=== PATIENT | female | born 1945 | race Caucasian/White ===

== ENCOUNTER 2021-04-28 15:29 | Inpatient (IN) | payer MEDICARE, OTHER, BC, SELFPAY ==
[2021-04-28] VITALS (28 sets, daily range): BP systolic 116–167; BP diastolic 39–79; PULSE 70–106; RESP 18–38; TEMP 36.4–37; O2SAT 93–100; BMI 29.0
--- NOTE | 2021-04-28 15:39 | ED_ITS ---
HPI - SOB/Dyspnea General: Chief Complaint: Shortness of Breath/Dyspnea Stated Complaint: RESP DISTRESS Time Seen by Provider: 04/28/21 15:39 Source: EMS Limitations: altered mental status History of Present Illness: HPI Narrative: Ms Dodge is 75 with unclear history who presents due to reported resp distress. Patient does not provide meaningful history with unclear baseline. No additional information available. Review of Systems General: Reports: ROS unobtainable due to mental status PFS ED PFSH: Medical History (Updated 04/29/21 @ 12:57 by Philip Miller MD) Alzheimer's dementia Physical Exam Narrative: EXAM NARRATIVE: GENERAL/CONSTITUTIONAL - ill-appearing. resp di stress Eyes - PERRL, no conjunctival injection ENMT - Atraumatic external nose and ears. Moist mucous membranes NECK - supple. trachea midline CARDIOVASCULAR - regular rate and rhythm. Peripheral pulses 2+ and equal RESPIRATORY -course/deminished at the bases to auscultation bilaterally. accessory muscle use present ABDOMEN/GI - Nontender/Nondistended. No tenderness to percussion or evidence of peritonitis MSK - Extremities without obvious deformity or tenderness to palpation SKIN - Warm, Dry NEURO - alert but disoriented. Moves all extremities equally. Course ED course: - Patient was seen and evaluated by me at bedside - Patient placed on cardiac monitors, IV access obtained - Initial evaluation notable for increased work of breathing. AMS - Labs notable for as noted - resp effort continued to be labored. Bipap ordered with improved - Imaging notable for PE and effusions - Upon serial reexamination after treatment the patient was improved - Based on patient history, evaluation, labs, and imaging as interpreted the most likely cause of the patient's condition is unclear, new heart failure, PE - The results of ED evaluation were discussed with the patient including plan for admission due to requirement for level of care not available if discharged to prevent significant worsening/deterioration. - Hospitalist contacted and agreed to admit the patient - Patient was admitted without further deterioration or significant events. Vital Signs: Vital signs: Vital Signs Temperature 97.7 F 04/30/21 04:00 Pulse Rate 89 04/30/21 08:38 Respiratory Rate 18 04/30/21 08:38 Blood Pressure 135/58 04/30/21 04:00 Pulse Oximetry 93 04/30/21 08:38 MDM - SOB/Dyspnea Medical Records: Attestation: I reviewed the patient's medical records. Lab Data: Attestation: I reviewed the patient's lab results. Labs: Lab Results 04/28/21 04/28/21 04/28/21 15:16 15:16 15:16 WBC 11.2 10^3/uL H 10 ^3/uL (4.0-10.0) RBC 4.90 10^6/uL 10^6 /uL (4.1-5.3) Hgb 13.5 g/dL g/dL (11.5-15.3) Hct 43.6 % % (37.0-47.0) MCV 89.0 fl fl (81-99) MCH 27.6 pg L pg (28.0-34.0) MCHC 31.0 g/dL g/dL (30.0-36.0) RDW 15.4 % H % (12.1-15.1) Plt Count 367 10^3/cmm 10^3 /cmm (130-400) MPV 10.6 fL H fL (7.4-10.4) Neut % (Auto) 78.5 % % Lymph % (Auto) 8.8 % % [place] % (Auto) 11.3 % % Eos % (Auto) 0.4 % % Baso % (Auto) 0.6 % % Neut # (Auto) 8.78 10^3/uL H 10 ^3/uL (1.8-7.7) Lymph # (Auto) 1.0 10^3/uL 10^3/ uL (0.8-4.8) [place] # (Auto) 1.3 10^3/uL H 10^ 3/uL (0.2-0.9) Eos # (Auto) 0.1 10^3/uL 10^3/ uL (0.0-0.8) Baso # (Auto) 0.1 10^3/uL 10^3/ uL (0.0-0.1) Nucleated RBC % (a uto) 0 % % Nucleated RBCs # 0.0 /100WBC /100W BC Specimen Type Sample Site ABG pH ABG pCO2 ABG pO2 ABG HCO3 ABG Base Excess Clint Test Hematocrit Hgb O2 Saturation Carboxyhemoglobin Methemoglobin Total Hemoglobin O2 Delivery Device O2 Liters/Min FiO2 Weatherization Installer ID Sodium 143 mmol/L mmol/L (136-145) Potassium 4.6 mmol/L mmol/L (3.5-5.1) Chloride 106 mmol/L mmol/L (98-107) Carbon Dioxide 24 mmol/L mmol/L (22-29) Anion Gap 17.6 (5-19) BUN 24 mg/dL H mg/dL (8-23) Creatinine 0.8 mg/dL mg/dL (0.5-0.9) GFR Calculation Not Reportable Glucose 142 mg/dL H mg/dL (65-115) POC Glucose Calculated Osmolal ity 302 mOsm/kg H mOs m/kg (285-295) Lactic Acid Lactic Acid (Sepsi s) Lactate Calcium 8.9 mg/dL mg/dL (8.5-10.5) Total Bilirubin 1.3 mg/dL H mg/dL (0.15-1.2) AST 48 U/L H U/L (0-32) ALT 93 U/L H U/L (0-33) Alkaline Phosphata se 216 IU/L H IU/L (35-105) Ammonia Troponin T Baselin e 32 ng/L H ng/L (0-10) Troponin T 120 Min [place] Delta Troponin T Troponin T Hi Sens 6Hr Troponin T Hi Sens 6Hr Delta C-Reactive Protein 41.9 mg/L H mg/L (0.0-4.9) NT-Pro-B Natriuret Pep 83062 pg/mL H pg/ mL (0-450) Total Protein 6.0 g/dL L g/dL (6.6-8.7) Albumin 3.5 g/dL g/dL (3.5-5.2) Globulin 2.5 g/dL g/dL (1.3-4.6) Lipase Procalcitonin 0.09 ng/mL ng/mL (0-0.5) Urine Color Urine Appearance Urine pH Ur Specific Gravit y Urine Protein Urine Glucose (UA) Urine Ketones Urine Blood Urine Nitrate Urine Bilirubin Urine Urobilinogen Ur Leukocyte Ale ase Urine RBC Urine WBC Ur Squamous Epith Cells Amorphous Sediment Urine Bacteria Urine Mucus Nasal/Oral COVID-1 9 PCR SARS-CoV-2 Ag (Rap id) 04/28/21 04/28/21 04/28/21 15:58 16:08 16:11 WBC RBC Hgb Hct MCV MCH MCHC RDW Plt Count MPV Neut % (Auto) Lymph % (Auto) [place] % (Auto) Eos % (Auto) Baso % (Auto) Neut # (Auto) Lymph # (Auto) [place] # (Auto) Eos # (Auto) Baso # (Auto) Nucleated RBC % (a uto) Nucleated RBCs # Specimen Type Arterial Sample Site Radial, left ABG pH 7.41 (7.35-7.45) ABG pCO2 31.1 mmHg L mmHg (35-45) ABG pO2 93.5 mmHg mmHg (80.0-100.0) ABG HCO3 19.8 mmol/L L mmo l/L (22-26) ABG Base Excess -3.8 mmol/L L mmo l/L (-2.0-2.0) Clint Test Pos Hematocrit 40.7 % % (37-47) Hgb O2 Saturation 96.1 % % (95-100) Carboxyhemoglobin 1.8 %THgb %THgb (0.4-20.1) Methemoglobin 0.2 % L % (0.4-1.5) Total Hemoglobin 13.3 g/dL g/dL (12-16) O2 Delivery Device Nc O2 Liters/Min 2.0 % % FiO2 28.0 % % Weatherization Installer ID Ed Sodium Potassium Chloride Carbon Dioxide Anion Gap BUN Creatinine GFR Calculation Glucose POC Glucose 154 mg/dL H mg/dL (70-110) Calculated Osmolal ity Lactic Acid Lactic Acid (Sepsi s) Lactate Calcium Total Bilirubin AST ALT Alkaline Phosphata se Ammonia Troponin T Baselin e Troponin T 120 Min [place] Delta Troponin T Troponin T Hi Sens 6Hr Troponin T Hi Sens 6Hr Delta C-Reactive Protein NT-Pro-B Natriuret Pep Total Protein Albumin Globulin Lipase Procalcitonin Urine Color Urine Appearance Urine pH Ur Specific Gravit y Urine Protein Urine Glucose (UA) Urine Ketones Urine Blood Urine Nitrate Urine Bilirubin Urine Urobilinogen Ur Leukocyte Ale ase Urine RBC Urine WBC Ur Squamous Epith Cells Amorphous Sediment Urine Bacteria Urine Mucus Nasal/Oral COVID-1 9 PCR Not detected SARS-CoV-2 Ag (Rap id) 04/28/21 04/28/21 04/28/21 16:18 17:00 17:00 WBC RBC Hgb Hct MCV MCH MCHC RDW Plt Count MPV Neut % (Auto) Lymph % (Auto) [place] % (Auto) Eos % (Auto) Baso % (Auto) Neut # (Auto) Lymph # (Auto) [place] # (Auto) Eos # (Auto) Baso # (Auto) Nucleated RBC % (a uto) Nucleated RBCs # Specimen Type Sample Site ABG pH ABG pCO2 ABG pO2 ABG HCO3 ABG Base Excess Lcint Test Hematocrit Hgb O2 Saturation Carboxyhemoglobin Methemoglobin Total Hemoglobin O2 Delivery Device O2 Liters/Min FiO2 Weatherization Installer ID Sodium Potassium Chloride Carbon Dioxide Anion Gap BUN Creatinine GFR Calculation Glucose POC Glucose Calculated Osmolal ity Lactic Acid 3.1 mmol/L H mmol /L (0.5-2.2) Lactic Acid (Sepsi s) Lactate Calcium Total Bilirubin AST ALT Alkaline Phosphata se Ammonia Troponin T Baselin e Troponin T 120 Min [place] 29.84 ng/L H ng/L (0-10) Delta Troponin T -2.16 ABS# L ABS# (0-10) Troponin T Hi Sens 6Hr Troponin T Hi Sens 6Hr Delta C-Reactive Protein NT-Pro-B Natriuret Pep Total Protein Albumin Globulin Lipase Procalcitonin Urine Color Urine Appearance Urine pH Ur Specific Gravit y Urine Protein Urine Glucose (UA) Urine Ketones Urine Blood Urine Nitrate Urine Bilirubin Urine Urobilinogen Ur Leukocyte Ale ase Urine RBC Urine WBC Ur Squamous Epith Cells Amorphous Sediment Urine Bacteria Urine Mucus Nasal/Oral COVID-1 9 PCR SARS-CoV-2 Ag (Rap id) Negative (Negative) 04/28/21 04/28/21 04/28/21 18:55 18:55 18:55 WBC RBC Hgb Hct MCV MCH MCHC RDW Plt Count MPV Neut % (Auto) Lymph % (Auto) [place] % (Auto) Eos % (Auto) Baso % (Auto) Neut # (Auto) Lymph # (Auto) [place] # (Auto) Eos # (Auto) Baso # (Auto) Nucleated RBC % (a uto) Nucleated RBCs # Specimen Type Sample Site ABG pH ABG pCO2 ABG pO2 ABG HCO3 ABG Base Excess Clint Test Hematocrit Hgb O2 Saturation Carboxyhemoglobin Methemoglobin Total Hemoglobin O2 Delivery Device O2 Liters/Min FiO2 Weatherization Installer ID Sodium Potassium Chloride Carbon Dioxide Anion Gap BUN Creatinine GFR Calculation Glucose POC Glucose Calculated Osmolal ity Lactic Acid Lactic Acid (Sepsi s) 2.7 mmol/L H mmol /L (0.5-2.2) Lactate Calcium Total Bilirubin AST ALT Alkaline Phosphata se Ammonia 14 umol/L umol/L (11-51) Troponin T Baselin e Troponin T 120 Min [place] Delta Troponin T Troponin T Hi Sens 6Hr Troponin T Hi Sens 6Hr Delta C-Reactive Protein NT-Pro-B Natriuret Pep Total Protein Albumin Globulin Lipase Procalcitonin Urine Color Yellow (Yellow) Urine Appearance Sl cloudy A (CLEAR) Urine pH 5 (5-7) Ur Specific Gravit y 1.025 (1.005-1.030) Urine Protein 3+ H (Negative) Urine Glucose (UA) Norm (Normal) Urine Ketones Negative (Negative) Urine Blood 3+ H (Negative) Urine Nitrate Negative (Negative) Urine Bilirubin 1+ H (Negative) Urine Urobilinogen 1 mg/dL H mg/dL (Negative) Ur Leukocyte Ale ase 1+ H (Negative) Urine RBC 0-4 /hpf H /hpf (0-2) Urine WBC 10-15 /hpf H /hpf (0-5) Ur Squamous Epith Cells 5-10 /hpf H /hpf (0-5) Amorphous Sediment 2+ /hpf /hpf Urine Bacteria 2+ /hpf H /hpf (NONE) Urine Mucus Trace /hpf /hpf Nasal/Oral COVID-1 9 PCR SARS-CoV-2 Ag (Rap id) 04/28/21 04/28/21 04/28/21 21:00 21:00 21:00 WBC RBC Hgb Hct MCV MCH MCHC RDW Plt Count MPV Neut % (Auto) Lymph % (Auto) [place] % (Auto) Eos % (Auto) Baso % (Auto) Neut # (Auto) Lymph # (Auto) [place] # (Auto) Eos # (Auto) Baso # (Auto) Nucleated RBC % (a uto) Nucleated RBCs # Specimen Type Sample Site ABG pH ABG pCO2 ABG pO2 ABG HCO3 ABG Base Excess Clint Test Hematocrit Hgb O2 Saturation Carboxyhemoglobin Methemoglobin Total Hemoglobin O2 Delivery Device O2 Liters/Min FiO2 Weatherization Installer ID Sodium Potassium Chloride Carbon Dioxide Anion Gap BUN Creatinine GFR Calculation Glucose POC Glucose Calculated Osmolal ity Lactic Acid Lactic Acid (Sepsi s) Lactate 2.1 mmol/L mmol/L (0.5-2.2) Calcium Total Bilirubin AST ALT Alkaline Phosphata se Ammonia Troponin T Baselin e Troponin T 120 Min [place] Troponin T Troponin T Hi Sens 6Hr 24.97 ng/L H ng/L (0-10) Troponin T Hi Sens 6Hr Delta -7.03 ng/L L ng/L (0-12) C-Reactive Protein NT-Pro-B Natriuret Pep Total Protein Albumin Globulin Lipase 32 U/L U/L (13-60) Procalcitonin Urine Color Urine Appearance Urine pH Ur Specific Gravit y Urine Protein Urine Glucose (UA) Urine Ketones Urine Blood Urine Nitrate Urine Bilirubin Urine Urobilinogen Ur Leukocyte Ale ase Urine RBC Urine WBC Ur Squamous Epith Cells Amorphous Sediment Urine Bacteria Urine Mucus Nasal/Oral COVID-1 9 PCR SARS-CoV-2 Ag (Rap id) 04/28/21 21:00 WBC RBC Hgb Hct MCV MCH MCHC RDW Plt Count MPV Neut % (Auto) Lymph % (Auto) [place] % (Auto) Eos % (Auto) Baso % (Auto) Neut # (Auto) Lymph # (Auto) [place] # (Auto) Eos # (Auto) Baso # (Auto) Nucleated RBC % (a uto) Nucleated RBCs # Specimen Type Sample Site ABG pH ABG pCO2 ABG pO2 ABG HCO3 ABG Base Excess Clint Test Hematocrit Hgb O2 Saturation Carboxyhemoglobin Methemoglobin Total Hemoglobin O2 Delivery Device O2 Liters/Min FiO2 Weatherization Installer ID Sodium Potassium Chloride Carbon Dioxide Anion Gap BUN Creatinine GFR Calculation Glucose POC Glucose 150 mg/dL H mg/dL (70-110) Calculated Osmolal ity Lactic Acid Lactic Acid (Sepsi s) Lactate Calcium Total Bilirubin AST ALT Alkaline Phosphata se Ammonia Troponin T Baselin e Troponin T 120 Min [place] Delta Troponin T Troponin T Hi Sens 6Hr Troponin T Hi Sens 6Hr [place] C-Reactive Protein NT-Pro-B Natriuret Pep Total Protein Albumin Globulin Lipase Procalcitonin Urine Color Urine Appearance Urine pH Ur Specific Gravit y Urine Protein Urine Glucose (UA) Urine Ketones Urine Blood Urine Nitrate Urine Bilirubin Urine Urobilinogen Ur Leukocyte Ale ase Urine RBC Urine WBC Ur Squamous Epith Cells Amorphous Sediment Urine Bacteria Urine Mucus Nasal/Oral COVID-1 9 PCR SARS-CoV-2 Ag (Rap id) EKG Data^: EKG 1: Attestation: I personally reviewed and interpreted this EKG as follows: EKG Interpretation Date: 04/28/21 EKG interpretation time: 15:51 Interpretation: Twelve-lead EKG shows a regular rhythm at a rate of 98. GA interval 124. QRS duration 82. QTc 399. normal [place]. . Interpretation: sinus Rhythm. . 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
--- NOTE | 2021-04-28 15:50 | CTR_ITS ---
PROCEDURE INFORMATION: Exam: CT Head Without Contrast Exam date and time: 04/28/2021 3:50 PM Age: 75 years old Clinical indication: Altered mental status/memory loss; Additional info: AMS TECHNIQUE: Imaging protocol: Computed tomography of the head without contrast. Radiation optimization: All CT scans at this facility use at least one of these dose optimization techniques: automated exposure control; mA and/or kV adjustment per patient size (includes targeted exams where dose is matched to clinical indication); or iterative reconstruction. COMPARISON: No relevant prior studies available. 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 Mild atrophy and mild white matter chronic microvascular changes are noted. No hemorrhage or evidence of acute infarction is seen. Cerebral ventricles: No ventriculomegaly. Paranasal sinuses: Visualized sinuses are unremarkable. No fluid levels. Mastoid air cells: Visualized mastoid air cells are well aerated. Bones/joints: Unremarkable. No acute fracture. Soft tissues: Unremarkable. CT/CT head wo con* [id number] IMPRESSION: No acute intracranial abnormality. Radiation Dose CTDIVOL = (mGy): DLP = 3836.04 (mGy-cm)
--- NOTE | 2021-04-28 15:50 | ECG_ITS ---
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 Measurements Intervals [place] Rate: 98 P: 51 NE: 124 QRS: 30 QRSD: 82 T: 88 QT: 344 QTc: 440 Interpretive Statements SINUS RHYTHM NONSPECIFIC T-WAVE ABNORMALITY No previous ECG available for comparison Electronically Signed On 04-29-2021 23:25:24 CDT by Jasmin Olson M.D. [email or web address] Board [email or web address] Addiction Medicine ([email or web address]).[email or web address] [email or web address] [email or web address] [email or web address].[email or web address]/store/Ov/[id number]
--- NOTE | 2021-04-28 15:50 | XRR_ITS ---
PROCEDURE INFORMATION: Exam: XR Chest Exam date and time: 04/28/2021 3:50 PM Age: 75 years old Clinical indication: Dyspnea and shortness of breath; Patient HX: Respiratory distress, SOB TECHNIQUE: Imaging protocol: XR of the chest. Views: 1 view. COMPARISON: none available. FINDINGS: Lungs: Bibasilar opacities are appreciated, which may be atelectasis and or pneumonia. Pleural spaces: A moderate size right pleural effusion is present. No pneumothorax is seen. Heart: The heart is mildly enlarged. Bones/joints: No acute fracture is seen. XR/XR chest 1V portable [id number] IMPRESSION: 1. Bibasilar atelectasis versus pneumonia, and moderate sized right pleural effusion. 2. Mild cardiomegaly.
[2021-04-28 16:01] LABS: Glucose Point of Care 154 mg/dL (70-110)
[2021-04-28 16:06] LABS: Basophils # 0.1 10^3/uL (0.0-0.1); Basophils % 0.6 %; Eosinophils # 0.1 10^3/uL (0.0-0.8); Eosinophils % 0.4 %; Hematocrit 43.6 % (37.0-47.0); Hemoglobin 13.5 g/dL (11.5-15.3); Lymphocytes % 8.8 %; Mean Corpuscular Hemoglobin 27.6 pg (28.0-34.0); Mean Platelet Volume 10.6 fL (7.4-10.4); Monocytes # 1.3 10^3/uL (0.2-0.9); Monocytes % 11.3 %; Neutrophils # 8.78 10^3/uL (1.8-7.7); Neutrophils % 78.5 %; Nucleated Red Blood Cells % 0 %; Platelet Count 367 10^3/cmm (130-400); Red Cell Distribution Width 15.4 % (12.1-15.1); White Blood Count 11.2 10^3/uL (4.0-10.0)
[2021-04-28 16:17] LABS: ABG PCO2 31.1 mmHg (35-45); ABG PH Result 7.41 (7.35-7.45); Arterial Blood Gas Hematocrit 40.7 % (37-47); Base Excess ABG -3.8 mmol/L (-2.0-2.0); Blood Gas Allen Test Pos; Blood Gas Sample Type Arterial; Carboxyhemoglobin 1.8 %THgb (0.4-20.1); HCO3 ABG 19.8 mmol/L (22-26); HGB O2 Sat 96.1 % (95-100); Methemoglobin 0.2 % (0.4-1.5); PO2 ABG 93.5 mmHg (80.0-100.0); Total Hemoglobin 13.3 g/dL (12-16)
[2021-04-28 16:18] LABS: Blood Gas Operator Identificat ED; Blood Gas Sample Site Radial, left; Oxygen Device NC
[2021-04-28] MEDS: sodium chloride 0.9% 500 ML 999 ML IV (16:18)
--- NOTE | 2021-04-28 16:25 | PC.NURSE ---
Out to lobby to speak with family due to covid testing, no visitors allowed at this time.
[2021-04-28] MEDS: ipratropium-albuterol 3 mL Neb INHALATION (16:32)
[2021-04-28 16:52] LABS: SARS Covid-2 Antigen Negative (Negative)
[2021-04-28 16:53] LABS: Procalcitonin 0.09 ng/mL (0-0.5)
[2021-04-28 16:56] LABS: Troponin(5th) Baseline 32 ng/L (0-10)
[2021-04-28 17:11] LABS: Alanine Aminotransferase 93 U/L (0-33); Albumin Level 3.5 g/dL (3.5-5.2); Alkaline Phosphatase 216 IU/L (35-105); Anion Gap 17.6 (5-19); Aspartate Amino Transferase 48 U/L (0-32); Blood Urea Nitrogen 24 mg/dL (8-23); C Reactive Protein 41.9 mg/L (0.0-4.9); Calcium 8.9 mg/dL (8.5-10.5); Carbon Dioxide 24 mmol/L (22-29); Chloride 106 mmol/L (98-107); Globulin 2.5 g/dL (1.3-4.6); Glucose 142 mg/dL (65-115); Osmolality Calculated 302 mOsm/kg (285-295); Potassium 4.6 mmol/L (3.5-5.1); Sodium 143 mmol/L (136-145); Total Bilirubin 1.3 mg/dL (0.15-1.2)
--- NOTE | 2021-04-28 17:18 | PC.NURSE ---
Updated in waiting room.
[2021-04-28 17:26] LABS: Troponin 5 2HR 29.84 ng/L (0-10); Troponin 5 2HR Delta -2.16 ABS# (0-10)
[2021-04-28 17:36] LABS: Lactic Sepsis W/Reflex 3.1 mmol/L (0.5-2.2)
--- NOTE | 2021-04-28 17:56 | CTR_ITS ---
PROCEDURE INFORMATION: Exam: CTA Chest With Contrast Exam date and time: 04/28/2021 5:56 PM Age: 75 years old Clinical indication: Fever; Cough and shortness of breath; Additional info: Hypoxemia, tachycardia, transminitis TECHNIQUE: Imaging protocol: Computed tomographic angiography of the chest with contrast. 3D rendering (Not supervised by radiologist): MIP and/or 3D reconstructed images were created by the technologist. Radiation optimization: All CT scans at this facility use at least one of these dose optimization techniques: automated exposure control; mA and/or kV adjustment per patient size (includes targeted exams where dose is matched to clinical indication); or iterative reconstruction. Contrast material: OMNI 350; Contrast volume: 95 ml; Contrast route: INTRAVENOUS (IV); COMPARISON: CR XR chest 1V portable [id number] 04/28/2021 4:05 PM RADIATION DOSE METRICS: Total DLP (mGy-cm): 1591.43 FINDINGS: Pulmonary arteries: There is occlusive segmental pulmonary embolism in the inferior left upper lobe. Right lower lobe pulmonary arteries are poorly opacified. A discrete thrombus is not visible. Aorta: There is moderate aortic atherosclerotic disease. Lungs: There is compressive atelectasis in the dependent portions of both lungs. There is multifocal consolidation in the right middle lobe and inferior left upper lobe. There is compressive atelectasis in the lower lobes. Pleural spaces: Large bilateral simple pleural effusions. Heart: There is mild cardiac enlargement. There is no pericardial effusion. RV/LV ratio is normal (1.0). Lymph nodes: There is no mediastinal or hilar lymphadenopathy. Bones/joints: Bones are unremarkable. Soft tissues: There is diffuse chest wall edema. IMPRESSION: 1. Pulmonary embolism. No sign of right ventricular strain. 2. Anasarca 3. Large bilateral simple pleural effusions. 4. Multifocal consolidation in the right middle lobe and lingula. Possible infection or infarction. PROCEDURE INFORMATION: Exam: CT Abdomen And Pelvis With Contrast Exam date and time: 04/28/2021 5:56 PM Age: 75 years old Clinical indication: Fever; Cough and shortness of breath; Additional info: Hypoxemia, tachycardia, transminitis TECHNIQUE: Imaging protocol: Computed tomography of the abdomen and pelvis with contrast. Radiation optimization: All CT scans at this facility use at least one of these dose optimization techniques: automated exposure control; mA and/or kV adjustment per patient size (includes targeted exams where dose is matched to clinical indication); or iterative reconstruction. Contrast material: OMNI 350; Contrast volume: 95 ml; Contrast route: INTRAVENOUS (IV); COMPARISON: CR XR chest 1V portable [id number] 04/28/2021 4:05 PM RADIATION DOSE METRICS: Total DLP (mGy-cm): 1591.43 FINDINGS: Liver: The liver is normal. Gallbladder and bile ducts: The gallbladder is incompletely distended. The wall is markedly diffusely thickened. There are gallstones in the lumen. There is no intrahepatic or extrahepatic bile duct dilation. Pancreas: The pancreas is unremarkable. Spleen: The spleen is unremarkable. Adrenal glands: The adrenal glands are unremarkable. Kidneys and ureters: The kidneys are unremarkable. No hydronephrosis or stones. No ureteral dilation. Stomach and bowel: The stomach is decompressed, preventing meaningful evaluation of wall thickness. The small bowel is nondilated. The colon is unremarkable. Appendix: The appendix is not visible. Intraperitoneal space: There is trace pelvic ascites. There is no free air or significant intraperitoneal free fluid. Vasculature: There is severe aortic atherosclerotic disease. Lymph nodes: There is no lymphadenopathy in the retroperitoneum, mesentery, pelvis or inguinal regions. Urinary bladder: The urinary bladder is decompressed, preventing meaningful evaluation of wall thickness. The Contreras catheter is appropriately positioned with the bulb and tip within the bladder lumen. Reproductive: The uterus is absent. There is no adnexal mass or large cyst. Bones/joints: There is mild degenerative disease in the lower lumbar spine. The pelvis and proximal femora are intact. Soft tissues: There is diffuse abdominal wall edema. The abdominal wall is intact. CT/CT angio chest w abd pel w con IMPRESSION: 1. Equivocal findings for acute cholecystitis including cholelithiasis and gallbladder wall thickening. 2. Anasarca. Radiation Dose CTDIVOL = (mGy): DLP = 1591.43~1591.43 (mGy-cm)
[2021-04-28 18:50] LABS: Reflex Lactate Order REFLEX LACTIC ORDERD
[2021-04-28] MEDS: iohexol 350 mg/mL 100 mL Btl IV (19:19)
[2021-04-28 19:23] LABS: Ammonia 14 umol/L (11-51); Lactic Acid level (Lactate) 2.7 mmol/L (0.5-2.2)
[2021-04-28] MEDS: FUROsemide 10 mg/mL SDV 4mL 40 MG IVP (19:57)
--- NOTE | 2021-04-28 20:06 | USR_ITS ---
PROCEDURE INFORMATION: Exam: US Abdomen, Limited; Right Upper Quadrant Exam date and time: 04/28/2021 8:06 PM Age: 75 years old Clinical indication: Abdominal pain; Additional info: Ruq, ? cholecystitis TECHNIQUE: Imaging protocol: US abdomen. Real time ultrasound with image documentation. Limited exam focused on the right upper quadrant. COMPARISON: CT angio chest w abd pel w con 04/28/2021 7:13 PM FINDINGS: Limitations: The suboptimal evaluation of the gallbladder due to body habitus and difficulty with positioning. Liver: The liver is unremarkable. Gallbladder: There is dependent echogenic material in the gallbladder lumen consistent with small stones or sludge. The gallbladder is nondistended. There is moderate diffuse gallbladder wall thickening. No pericholecystic fluid. Information regarding sonographic Lewis sign was not provided by the dough scaler and mixer. Common bile duct: The common bile duct is nondilated measuring 5 mm. Pancreas: The pancreas is obscured by overlying bowel gas. Right kidney: The right kidney is poorly visualized. Aorta: The visible portion of the abdominal aorta is unremarkable. Inferior vena cava: The upper IVC is unremarkable. US/US abdomen limited [id number] IMPRESSION: Nondistended gallbladder containing stones or sludge and demonstrating a thickened wall. Findings are equivocal for acute cholecystitis. Gallbladder wall edema could be related to the systemic process producing anasarca.
[2021-04-28 20:13] LABS: Glucose Urine UA Norm (Normal); Protein Urine 3+ (Negative); Specific Gravity, Urine 1.025 (1.005-1.030); Urine Color Yellow (Yellow); pH Urine 5 (5-7)
[2021-04-28 20:14] LABS: Add Urine Microscopic? YES; Bilirubin Urine 1+ (Negative); Blood Urine 3+ (Negative); Ketones Urine Negative (Negative); Leukocyte Esterase Urine 1+ (Negative); Nitrate Urine Negative (Negative); RBC Urine 0-4 /hpf (0-2); Urobilinogen Urine 1 mg/dL (Negative)
[2021-04-28 20:15] LABS: Add Urine Culture? Yes; Amorphous Sediment Urine 2+ /hpf; Bacteria Urine 2+ /hpf; Mucus Urine TRACE /hpf
[2021-04-28] MEDS: levofloxacin-dextrose 5 % 750 MG/150 ML PREMIX 100 MG IV (20:24)
[2021-04-28] MEDS: enoxaparin 80 mg/0.8 mL Syringe SUBCUT (20:24)
[2021-04-28 21:03] LABS: Glucose Point of Care 150 mg/dL (70-110)
[2021-04-28] MEDS: morphine 4 mg/mL SDV 1 mL 2 MG IVP (21:17)
[2021-04-28] MEDS: ondansetron 2 mg/ML SDV 2 mL 4 MG IVP (21:17)
--- NOTE | 2021-04-28 21:21 | PC.NURSE ---
800ml howard output
[2021-04-28 21:31] LABS: Troponin 5 6HR 24.97 ng/L (0-10)
[2021-04-28 21:32] LABS: Lactate (Lactic Acid level) 2.1 mmol/L (0.5-2.2)
[2021-04-28 21:33] LABS: Lipase 32 U/L (13-60)
[2021-04-28 21:44] LABS: Troponin 5 6HR Delta -7.03 ng/L (0-12)
--- NOTE | 2021-04-28 21:50 | ECG_ITS ---
[facility] Test Date: 2021-04-28 Pat Name: Ana Paula Dodge Department: Room: ICU03 Gender: Female Referral Rn: : 1945 Requested By: Mp Cosby Order Number: [id number] Radha MD: Jasmin Olson M.D. Measurements Intervals [place] Rate: 84 P: 47 DC: 123 QRS: 25 QRSD: 85 T: 212 QT: 399 QTc: 473 Interpretive Statements SINUS RHYTHM NONSPECIFIC T-WAVE ABNORMALITY Compared to ECG 04/28/2021 15:42:46 No significant changes Electronically Signed On 04-29-2021 23:47:07 CDT by Jasmin Olson M.D. [email or web address] medical [id number]
--- NOTE | 2021-04-28 23:30 | PC.NURSE ---
Patient arrived to ICU from ER at 2310. On Bipap and unable to answer questions at this time. Has a diagnosis of dementia.
[2021-04-29] VITALS (24 sets, daily range): BP systolic 106–147; BP diastolic 35–78; PULSE 68–88; RESP 15–19; TEMP 36.3–36.4; O2SAT 93–100
--- NOTE | 2021-04-29 05:26 | USCV_ITS ---
Ana Paula Dodge Age: 75 Gender: F : 1945 Exam Date: 04/29/2021 06:44 Ordering Phys: Shannon Bob MD Technologist: Margarita Hurst Exam Location: [facility] [place] Indication: ESTIMATED EF, EVAL RIGHT HEART STRAIN, COVID BP: 121 / 66 HR: 75 Rhythm: Sinus Technical Quality: Adequate MEASUREMENTS (Male / Female) Normal Values 2D ECHO LV Diastolic Diameter PLAX 4.8 cm 4.2 - 5.9 / 3.9 - 5.3 cm LV Systolic Diameter PLAX 4.4 cm IVS Diastolic Thickness 1.2 cm 0.6 - 1.0 / 0.6 - 0.9 cm IVS Systolic Thickness 1.5 cm LVPW Diastolic Thickness 1.1 cm 0.6 - 1.0 / 0.6 - 0.9 cm LVPW Systolic Thickness 1.4 cm LVOT Diameter 2.0 cm LV Ejection Fraction 2D Teich 19.7 % LV Ejection Fraction MOD 2C 32.7 % LV Ejection Fraction 2C AL 34.1 % LA Diameter 2.8 cm LA Width 3.3 cm LA Height 4.6 cm RA Width 4.5 cm RA Height 4.3 cm Aorta at Sinotubular Diameter 2.2 cm DOPPLER AV Peak Velocity 344.0 cm/s LVOT Peak Velocity 89.0 cm/s AV Area Cont Eq vti 0.8 cm squared AV Area Cont Eq pk 0.8 cm squared MV Peak Velocity 223.0 cm/s MV Area PHT 4.0 cm squared Mitral E to A Ratio 1.6 MV E' Velocity 75.0 cm/s Mitral E to MV E' Ratio 32.5 Mitral E to LV E' Lateral Ratio 38.5 Mitral E to LV E' Septal Ratio 28.1 TR Peak Velocity 312.1 cm/s TR Peak Gradient 39.0 mmHg TR Mean Velocity 261.5 cm/s TR Mean Gradient 29.4 mmHg TR Velocity Time Integral 112.2 cm TV Peak E Velocity 60.0 cm/s Right Atrial Pressure 15.0 mmHg Pulmonary Artery Systolic Pressu 54.0 mmHg PV Peak Velocity 93.0 cm/s RV Acceleration Time 0.1 s FINDINGS Left Ventricle Normal LV size with reduced ejection fraction of 30 to 35%. Mild concentric left ventricular hypertrophy. Diffuse hypokinesia of the left ventricle.Grade III/IV diastolic dysfunction (restrictive filling pattern), severely elevated filling pressures. Right Ventricle The right ventricle is normal in size and function. Right Atrium Mildly increased right atrial size. Left Atrium Mildly increased left atrial size. Mitral Valve Thickened mitral valve. Mild mitral annular calcification. Mild- moderate mitral valve regurgitation. Aortic Valve Thickened aortic valve. [id number] aortic valve regurgitation. Tricuspid Valve Mild tricuspid valve regurgitation. Pulmonic Valve Structurally normal pulmonic valve without significant stenosis. There is no pulmonic regurgitation. Pericardium Possibly large left-sided pleural effusion Aorta Normal ascending aorta dimension. CONCLUSIONS Normal LV size with reduced ejection fraction of 30 to 35%. Mild concentric left ventricular hypertrophy. Diffuse hypokinesia of the left ventricle.Grade III/IV diastolic dysfunction (restrictive filling pattern), severely elevated filling pressures. Mild biatrial enlargementThickened mitral valve. Mild mitral annular calcification. Mild-moderate mitral valve regurgitation. Thickened aortic valve. [id number] aortic valve regurgitation. Structurally normal pulmonic valve without significant stenosis. There is no pulmonic regurgitation. Possible large left-sided pleural effusion Technically somewhat difficult study because of poor ultrasonic window Dr Jasmin Olson MD FACC (Electronically Signed) Final Date: 29 April 2021 14:50 S
--- NOTE | 2021-04-29 05:32 | USCV_ITS ---
Ana Paula Dodge Age: 75 Gender: F : 1945 Exam Date: 04/29/2021 06:28 Ordering Phys: Shannon Bob MD Technologist: Margarita Hurst Exam Location: [facility] [place] Indication: COVID, PE HISTORY: Lower extremity swelling. PROCEDURES: Venous duplex imaging was performed in bilateral lower extremities. The following venous structures were evaluated: common femoral vein, profunda vein, proximal portion of the greater saphenous vein, superficial femoral vein, and the popliteal vein. In addition, the posterior tibial and peroneal trunk were evaluated. Serial compression, augmentation maneuvers, and spectral Doppler flow evaluation were performed. FINDINGS: No evidence of DVT seen in any vessel visualized at this time. Ble edema seen TDS due to pt AMS CONCLUSIONS No evidence of right lower extremity DVT. No evidence of left lower extremity DVT. Trenton Bravo MD (Electronically Signed) Final Date: 29 April 2021 11:53 S
--- NOTE | 2021-04-29 05:42 | PM.HP ---
Providers/Chief Complaint Admitting Physician: Shannon Bob MD Primary Care Provider: Francisco Lopez DO Chief Complaint: AMS History of Present Illness Ana Paula Dodge is a 75 year old female, longterm resident, limited history available at this time. Presented today from longterm after being noted to be more lethargic than usual. At baseline she is alert but confused, today she was very poorly responsive. Additionally her O2 sats were noted to be 89% and therefore she was sent over to the hospital. Upon presentation here she was noted to have increased work of breathing and placed on BiPAP following which she is currently appearing much more comfortable. She was noted to have hypoxic respiratory failure on her ABG. CT of the chest has revealed a pulmonary embolism and also bilateral large pleural effusions which are likely contributing. Per chart review she does not appear to have a known history of CHF. No reported fever. No reported nausea vomiting diarrhea. UA with concern for UTI. Review of Systems General: Reports: ROS unobtainable due to medical condition Medications/Allergies Allergies Allergy/AdvReac Type Severity Reaction Status Date / Time floxacillin Allergy Unknown Unknown Verified 04/28/21 19:38 PFSH Acute PFSH: Medical History (Updated 04/29/21 @ 07:06 by Shannon Bob MD) Alzheimer's dementia Vitals/I&O/Wt Last Vital Signs Temp 97.6 F 04/29/21 03:27 Pulse 71 04/29/21 03:27 Resp 16 04/29/21 03:27 BP 121/66 04/29/21 03:27 Pulse Ox 94 04/29/21 03:27 04/28/21 04/28/21 04/29/21 14:59 22:59 06:59 Intake Total 150 / 150 100 / 250 Balance 150 / 150 100 / 250 Weight last 48 hrs Weight 80.768 kg Weight 81.647 kg Physical Exam Narrative: EXAM NARRATIVE: General: Currently on Bipap, opens eyes to calling to name, does not answer other questions HEENT: PERRLA, pupils bilaterally equal and reactive, pallors not present Chest: Normal vesicular breath sounds, no added sounds, equal good air entry bilaterally CVS: S1-S2 regular, no murmurs, no tachycardia, no gallops, no rubs Abdomen: Soft, nontender, no organomegaly, bowel sounds present Neuro: moving all extremities in bed, does not appear to follow commands Urinary Catheter Management^: Contreras: Cath Placed During This Visit: yes Urinary Catheter Date of Insertion: 04/28/21 Urinary Catheter Time of Insertion: 18:46 Data : 04/28/21 15:16 04/28/21 15:16 Micro: Microbiology 04/28/21 20:19 Blood Culture - Preliminary Blood SPECIMEN COLLECTED 04/28/21 18:55 Blood Culture - Preliminary Blood SPECIMEN COLLECTED Attestation for Other Data: I personally reviewed and interpreted the following: Other data: Laboratory Results WBC 11.2 10^3/uL (4.0-10.0) H 04/28/21 15:16 RBC 4.90 10^6/uL (4.1-5.3) 04/28/21 15:16 Hgb 13.5 g/dL (11.5-15.3) 04/28/21 15:16 Hct 43.6 % (37.0-47.0) 04/28/21 15:16 MCV 89.0 fl (81-99) 04/28/21 15:16 MCH 27.6 pg (28.0-34.0) L 04/28/21 15:16 MCHC 31.0 g/dL (30.0-36.0) 04/28/21 15:16 RDW 15.4 % (12.1-15.1) H 04/28/21 15:16 Plt Count 367 10^3/cmm (130-400) 04/28/21 15:16 MPV 10.6 fL (7.4-10.4) H 04/28/21 15:16 Neut % (Auto) 78.5 % 04/28/21 15:16 Lymph % (Auto) 8.8 % 04/28/21 15:16 [place] % (Auto) 11.3 % 04/28/21 15:16 Eos % (Auto) 0.4 % 04/28/21 15:16 Baso % (Auto) 0.6 % 04/28/21 15:16 Neut # (Auto) 8.78 10^3/uL (1.8-7.7) H 04/28/21 15:16 Lymph # (Auto) 1.0 10^3/uL (0.8-4.8) 04/28/21 15:16 [place] # (Auto) 1.3 10^3/uL (0.2-0.9) H 04/28/21 15:16 Eos # (Auto) 0.1 10^3/uL (0.0-0.8) 04/28/21 15:16 Baso # (Auto) 0.1 10^3/uL (0.0-0.1) 04/28/21 15:16 Nucleated RBC % (auto) 0 % 04/28/21 15:16 Nucleated RBCs # 0.0 /100WBC 04/28/21 15:16 Specimen Type Arterial 04/28/21 16:08 Sample Site Radial, left 04/28/21 16:08 ABG pH 7.41 (7.35-7.45) 04/28/21 16:08 ABG pCO2 31.1 mmHg (35-45) L 04/28/21 16:08 ABG pO2 93.5 mmHg (80.0-100.0) 04/28/21 16:08 ABG HCO3 19.8 mmol/L (22-26) L 04/28/21 16:08 ABG Base Excess -3.8 mmol/L (-2.0-2.0) L 04/28/21 16:08 Clint Test Pos 04/28/21 16:08 Hematocrit 40.7 % (37-47) 04/28/21 16:08 Hgb O2 Saturation 96.1 % (95-100) 04/28/21 16:08 Carboxyhemoglobin 1.8 %THgb (0.4-20.1) 04/28/21 16:08 Methemoglobin 0.2 % (0.4-1.5) L 04/28/21 16:08 Total Hemoglobin 13.3 g/dL (12-16) 04/28/21 16:08 O2 Delivery Device Nc 04/28/21 16:08 O2 Liters/Min 2.0 % 04/28/21 16:08 FiO2 28.0 % 04/28/21 16:08 Telecommunications Support ID Ed 04/28/21 16:08 Sodium 143 mmol/L (136-145) 04/28/21 15:16 Potassium 4.6 mmol/L (3.5-5.1) 04/28/21 15:16 Chloride 106 mmol/L (98-107) 04/28/21 15:16 Carbon Dioxide 24 mmol/L (22-29) 04/28/21 15:16 Anion Gap 17.6 (5-19) 04/28/21 15:16 BUN 24 mg/dL (8-23) H 04/28/21 15:16 Creatinine 0.8 mg/dL (0.5-0.9) 04/28/21 15:16 GFR Calculation Not Reportable 04/28/21 15:16 Glucose 142 mg/dL (65-115) H 04/28/21 15:16 POC Glucose 150 mg/dL (70-110) H 04/28/21 21:00 Calculated Osmolality 302 mOsm/kg (285-295) H 04/28/21 15:16 Lactic Acid 3.1 mmol/L (0.5-2.2) H 04/28/21 17:00 Lactic Acid (Sepsis) 2.7 mmol/L (0.5-2.2) H 04/28/21 18:55 Lactate 2.1 mmol/L (0.5-2.2) 04/28/21 21:00 Calcium 8.9 mg/dL (8.5-10.5) 04/28/21 15:16 Total Bilirubin 1.3 mg/dL (0.15-1.2) H 04/28/21 15:16 AST 48 U/L (0-32) H 04/28/21 15:16 ALT 93 U/L (0-33) H 04/28/21 15:16 Alkaline Phosphatase 216 IU/L (35-105) H 04/28/21 15:16 Ammonia 14 umol/L (11-51) 04/28/21 18:55 Troponin T Baseline 32 ng/L (0-10) H 04/28/21 15:16 Troponin T 120 Minute 29.84 ng/L (0-10) H 04/28/21 17:00 Delta Troponin T -2.16 ABS# (0-10) L 04/28/21 17:00 Troponin T Hi Sens 6Hr 24.97 ng/L (0-10) H 04/28/21 21:00 Troponin T Hi Sens 6Hr Delta -7.03 ng/L (0-12) L 04/28/21 21:00 C-Reactive Protein 41.9 mg/L (0.0-4.9) H 04/28/21 15:16 NT-Pro-B Natriuret Pep 21803 pg/mL (0-450) H 04/28/21 15:16 Total Protein 6.0 g/dL (6.6-8.7) L 04/28/21 15:16 Albumin 3.5 g/dL (3.5-5.2) 04/28/21 15:16 Globulin 2.5 g/dL (1.3-4.6) 04/28/21 15:16 Lipase 32 U/L (13-60) 04/28/21 21:00 Procalcitonin 0.09 ng/mL (0-0.5) 04/28/21 15:16 Urine Color Yellow (Yellow) 04/28/21 18:55 Urine Appearance Sl cloudy (CLEAR) A 04/28/21 18:55 Urine pH 5 (5-7) 04/28/21 18:55 Ur Specific [place] 1.025 (1.005-1.030) 04/28/21 18:55 Urine Protein 3+ (Negative) H 04/28/21 18:55 Urine Glucose (UA) Norm (Normal) 04/28/21 18:55 Urine Ketones Negative (Negative) 04/28/21 18:55 Urine Blood 3+ (Negative) H 04/28/21 18:55 Urine Nitrate Negative (Negative) 04/28/21 18:55 Urine Bilirubin 1+ (Negative) H 04/28/21 18:55 Urine Urobilinogen 1 mg/dL (Negative) H 04/28/21 18:55 Ur Leukocyte Esterase 1+ (Negative) H 04/28/21 18:55 Urine RBC 0-4 /hpf (0-2) H 04/28/21 18:55 Urine WBC 10-15 /hpf (0-5) H 04/28/21 18:55 Ur Squamous Epith Cells 5-10 /hpf (0-5) H 04/28/21 18:55 Amorphous Sediment 2+ /hpf 04/28/21 18:55 Urine Bacteria 2+ /hpf (NONE) H 04/28/21 18:55 Urine Mucus Trace /hpf 04/28/21 18:55 SARS-CoV-2 Ag (Rapid) Negative (Negative) 04/28/21 16:18 Impressions Chest X-Ray 04/28/21 15:50 IMPRESSION: 1. Bibasilar atelectasis versus pneumonia, and moderate sized right pleural effusion. 2. Mild cardiomegaly. Head CT 04/28/21 15:50 IMPRESSION: No acute intracranial abnormality. Radiation Dose CTDIVOL = (mGy): DLP = 3836.04 (mGy-cm) Chest/Abdomen/Pelvis CT 04/28/21 17:56 IMPRESSION: 1. Equivocal findings for acute cholecystitis including cholelithiasis and gallbladder wall thickening. 2. Anasarca. Radiation Dose CTDIVOL = (mGy): DLP = 1591.43~1591.43 (mGy-cm) ADDENDUM: 04/28/211999 THIS REPORT CONTAINS FINDINGS THAT MAY BE CRITICAL TO PATIENT CARE. The findings were verbally communicated via telephone conference with Mp Cosby at 7:58 PM CDT on 04/28/2021. The findings were acknowledged and understood. MPRESSION: 1. Pulmonary embolism. No sign of right ventricular strain. 2. Anasarca 3. Large bilateral simple pleural effusions. 4. Multifocal consolidation in the right middle lobe and lingula. Possible infection or infarction. Radiation Dose CTDIVOL = (mGy): DLP = 1591.43~1591.43 (mGy-cm) Abdomen Ultrasound 04/28/21 20:06 IMPRESSION: Nondistended gallbladder containing stones or sludge and demonstrating a thickened wall. Findings are equivocal for acute cholecystitis. Gallbladder wall edema could be related to the systemic process producing anasarca. A&P Assessment and plan (1) Pulmonary embolism: start a/c with lovenox 1mg/kg q12h Le duplex to evaluate for DVT Status: Acute (2) Pulmonary edema: elavted BNP, signs of pulm edema and B/L large effusion s on CT chest check echocardiogram, with concoitant PE concern for right heart strain/cor pulmonale Status: Acute (3) Pleural effusion: may be related to CHF, 2d echo as above lasix 40mg IVP daily, patient is lasix naive monitor I?O, daily weight , renal fxn Status: Acute (4) AMS (altered mental status): likely metabolic encpahlopathy from acute medical issues and hypoxia upn admission curently on Bipap, tolerating well wean as tolerated Status: Acute (5) UTI (urinary tract infection): empiric ceftriaxone 1g iv q24h await urine cx Status: Acute (6) Cholecystitis: incidentally noted on CT ABdpelvis no RUQ tenderness or gurading on exam LFTs deranged Check HIDA scan Surgery consult after HIDA results NPO Ceftriaxone/flagyl for empiric coverage Status: Acute Additional A&P Information DNR/DNI per [place] records DVT ppx: full dose lovenox Attestations Medical Necessity Statement*: >2midnight anticpiated for above care Coding Level of Care Code Acute Assistive Technology Specialist for [facility] Fwd Diagnoses Pulmonary embolism I26.99 Pulmonary edema J81.1 Pleural effusion J90 AMS (altered mental status) R41.82 UTI (urinary tract infection) N39.0 Cholecystitis K81.9
[2021-04-29] MEDS: enoxaparin 80 mg/0.8 mL Syringe SUBCUT ×2 (08:57→19:46)
[2021-04-29] MEDS: FUROsemide 10 mg/mL SDV 4mL 40 MG IVP ×2 (09:00→17:06)
[2021-04-29] MEDS: famotidine 20 mg/2 mL INJ IVP ×2 (09:48→17:02)
[2021-04-29] MEDS: cefTRIAXone 1,000 MG in sodium chloride 0.9% (plus) 50 ML 100 MG IV (10:10)
--- NOTE | 2021-04-29 10:45 | PC.PHAR ---
PT IS FROM [facility]-PER DARIUS NURSE FROM [facility] STATES THE PT FINISHED THE LASIX AND KCL ON 04/28/21-STATES THE PT CAME TO THEM ON HOSPICE THEN WAS TAKEN OFF HOSPICE AND DOESNT TAKE MANY MEDICATIONS
[2021-04-29] MEDS: metroNIDAZOLE IV 500 MG/100 ML PREMIX 100 MG IV ×2 (11:23→17:01)
[2021-04-29] MEDS: sodium chloride 0.9% 500 ML 15 ML (11:35)
--- NOTE | 2021-04-29 12:51 | PM.PN ---
Subjective Subjective: Interval history: Good morning examination patient seen on BiPAP ventilation currently 99%, confused, mildly verbal on tactile stimulation. Has remained hemodynamically stable and afebrile. Patient's care discussed in detail with her daughter and in person. They state patient has a history of severe dementia, is usually confused but verbal, not able to tell her complaints, severe aortic stenosis for which she was advised medical management because of severe dementia, congestive heart failure. Her daughter states she saw the patient yesterday afternoon at that time she was found to be mildly hypoxic in mid 80s and was complaining of pain in her back. Vitals/I&O/Wt Last Vital Signs Temp 97.3 F L 04/29/21 11:45 Pulse 82 04/29/21 11:45 Resp 18 04/29/21 11:45 BP 118/54 04/29/21 11:45 Pulse Ox 99 04/29/21 11:45 04/28/21 04/29/21 04/29/21 22:59 06:59 14:59 Intake Total 150 / 150 100 / 250 50 / 50 Output Total 600 / 600 Balance 150 / 150 100 / 250 -550 / -550 Weight last 48 hrs Weight 80.768 kg Weight 81.647 kg Physical Exam Narrative: EXAM NARRATIVE: General: Currently on Bipap, opens eyes to calling to name, does not answer other questions HEENT: PERRLA, pupils bilaterally equal and reactive, pallors not present Chest: Normal vesicular breath sounds, occasional coarse crackles present all over the lung tenorio, decreased air entry bilaterally in lower and posterior zones CVS: S1-S2 regular, no murmurs, no tachycardia, no gallops, no rubs Abdomen: Soft, nontender, no organomegaly, bowel sounds present Neuro: moving all extremities in bed, does not appear to follow commands Urinary Catheter Management^: Contreras: Cath Placed During This Visit: yes Reason for Continuing Indwelling Catheter: Accurate Measurement of Urinary Output in Critically Ill Patients Urinary Catheter Date of Insertion: 04/28/21 Urinary Catheter Time of Insertion: 18:46 Data : 04/28/21 15:16 04/28/21 15:16 Micro: Microbiology 04/28/21 20:19 Blood Culture - Preliminary Blood SPECIMEN COLLECTED 04/28/21 18:55 Blood Culture - Preliminary Blood SPECIMEN COLLECTED A&P Assessment and plan (1) Sepsis: Evident from elevated lactate, altered mental status this on admission. Repeat lactate, CBC, CMP. Most likely secondary to cholecystitis versus UTI. Blood culture sent. Urine culture. Check MRSA swab, MRCP to rule out gallstone. Continue with ceftriaxone and Flagyl for now. Will de-escalate or change antibiotics as per culture results. Status: Acute (2) Hypoxia: Most likely combination of bilateral pleural effusion due to congestive heart failure, pulmonary embolism. Cannot rule out underlying pneumonia. COVID-19 PCR awaited. Continue with isolation precautions for now. Status: Acute (3) Pulmonary embolism: Without right heart strain on CTA. Echocardiogram awaited. Continue Lovenox 1 mg/kg body weight every 12 hourly. Lower limb Dopplers negative for DVT. Status: Acute (4) Pulmonary edema: Most likely secondary to severe aortic stenosis. BNP elevated. IV Lasix 40 twice daily. Strict input output charting. Daily weights. Status: Acute (5) UTI (urinary tract infection): empiric ceftriaxone 1g iv q24h await urine cx Status: Acute (6) Cholecystitis: Monitor LFTs. Management as above. Status: Acute (7) AMS (altered mental status): Most likely metabolic encephalopathy worsening patient's baseline dementia. Frequent orientation. N.p.o. for now. Status: Acute (8) Pleural effusion: Treatment as above. We will try to get her off BiPAP and if patient is not saturating well will discuss with pulmonology for thoracentesis. For now we will try to avoid. Less concern for empyema currently. Status: Acute Additional A&P Information CODE STATUS: DNR/DNI per [place] records DVT ppx: full dose lovenox N.p.o. except meds ice and chips. Famotidine for PUD prophylaxis Attestations Medical Necessity Statement*: Requires further hospitalization for management of sepsis, hypoxia secondary from embolism, underlying cholecystitis, acute metabolic encephalopathy Time Spent in Patient Care: Greater than 35 minutes (>than 50% of time spent in counselling and/or direct pt care on unit). Coding Level of Care Code Acute Central Office Equipment Installer for [facility] Fwd Diagnoses Sepsis A41.9 Hypoxia R09.02 Pulmonary embolism I26.99 Pulmonary edema J81.1 UTI (urinary tract infection) N39.0 Cholecystitis K81.9 AMS (altered mental status) R41.82 Pleural effusion J90
[2021-04-29 14:02] LABS: Coronavirus Test Green County Not Detected
[2021-04-29 14:56] LABS: Basophils % 0.1 %; Hemoglobin 12.7 g/dL (11.5-15.3); Lymphocytes # 1.1 10^3/uL (0.8-4.8); Mean Corpuscular HGB Conc 30.2 g/dL (30.0-36.0); Mean Corpuscular Hemoglobin 27.1 pg (28.0-34.0); Mean Corpuscular Volume 89.6 fl (81-99); Mean Platelet Volume 10.4 fL (7.4-10.4); Monocytes # 1.4 10^3/uL (0.2-0.9); Monocytes % 12.3 %; Neutrophils # 9.12 10^3/uL (1.8-7.7); Neutrophils % 78.1 %; Nucleated Red Blood Cells % 0 %; Platelet Count 328 10^3/cmm (130-400); Red Blood Count 4.69 10^6/uL (4.1-5.3); Red Cell Distribution Width 15.3 % (12.1-15.1); White Blood Count 11.7 10^3/uL (4.0-10.0)
[2021-04-29 15:17] LABS: Alanine Aminotransferase 69 U/L (0-33); Albumin Level 2.9 g/dL (3.5-5.2); Alkaline Phosphatase 146 IU/L (35-105); Anion Gap 14.6 (5-19); Aspartate Amino Transferase 31 U/L (0-32); Blood Urea Nitrogen 21 mg/dL (8-23); Calcium 7.8 mg/dL (8.5-10.5); Carbon Dioxide 25 mmol/L (22-29); Chloride 104 mmol/L (98-107); Creatinine Clr Calc Pharmacy 57.8822; Globulin 2.6 g/dL (1.3-4.6); Glucose 109 mg/dL (65-115); Osmolality Calculated 292 mOsm/kg (285-295); Potassium 4.6 mmol/L (3.5-5.1); Sodium 139 mmol/L (136-145); Total Bilirubin 0.8 mg/dL (0.15-1.2); Total Protein 5.5 g/dL (6.6-8.7)
[2021-04-29 15:20] LABS: Lactic Sepsis W/Reflex 1.7 mmol/L (0.5-2.2)
[2021-04-30] VITALS (8 sets, daily range): BP systolic 110–135; BP diastolic 55–67; PULSE 83–111; RESP 18–22; TEMP 36.1–36.6; O2SAT 89–97
[2021-04-30] MEDS: metroNIDAZOLE IV 500 MG/100 ML PREMIX 100 MG IV ×2 (00:33→10:59)
[2021-04-30 05:10] LABS: Basophils % 0.3 %; Eosinophils % 0.1 %; Hematocrit 41.8 % (37.0-47.0); Hemoglobin 12.8 g/dL (11.5-15.3); Lymphocytes # 1.4 10^3/uL (0.8-4.8); Mean Corpuscular HGB Conc 30.6 g/dL (30.0-36.0); Mean Corpuscular Hemoglobin 27.4 pg (28.0-34.0); Mean Corpuscular Volume 89.5 fl (81-99); Mean Platelet Volume 10.6 fL (7.4-10.4); Monocytes # 1.6 10^3/uL (0.2-0.9); Monocytes % 12.2 %; Neutrophils # 9.86 10^3/uL (1.8-7.7); Nucleated Red Blood Cells % 0.2 %; Platelet Count 361 10^3/cmm (130-400); Red Blood Count 4.67 10^6/uL (4.1-5.3); Red Cell Distribution Width 15.6 % (12.1-15.1)
[2021-04-30 05:30] LABS: Alanine Aminotransferase 68 U/L (0-33); Albumin Level 2.9 g/dL (3.5-5.2); Alkaline Phosphatase 162 IU/L (35-105); Anion Gap 14.8 (5-19); Aspartate Amino Transferase 34 U/L (0-32); Blood Urea Nitrogen 24 mg/dL (8-23); Calcium 8.5 mg/dL (8.5-10.5); Carbon Dioxide 26 mmol/L (22-29); Chloride 107 mmol/L (98-107); Creatinine Clr Calc Pharmacy 57.8822; Globulin 2.9 g/dL (1.3-4.6); Glucose 105 mg/dL (65-115); Osmolality Calculated 302 mOsm/kg (285-295); Potassium 3.8 mmol/L (3.5-5.1); Sodium 144 mmol/L (136-145); Total Bilirubin 0.8 mg/dL (0.15-1.2); Total Protein 5.8 g/dL (6.6-8.7)
--- NOTE | 2021-04-30 07:00 | NM_ITS ---
WS: [id number] NUCLEAR MEDICINE HIDA SCAN CLINICAL INFORMATION: cholecystitis TECHNIQUE: Following intravenous administration of 4.1 mCi of technetium 99m mebrofenin, images of th e abdomen were obtained over the course of 60 minutes. Next, gallbladder ejection fraction was determ ined by obtaining preprandial and one-hour postprandial images of the gallbladder following oral josé miguel stion of Ensure. COMPARISON: None. FINDINGS: Normal gallbladder filling at 5 minutes. Normal hepatic excretion. Gallbladder fills by 15 minutes. N o evidence of acute cholecystitis. Common bile duct and small bowel activity is visualized. Patient unable to drink Ensure Plus for gallbladder ejection fraction evaluation. NM/NM hepatobiliary w phar* [id number] IMPRESSION: 1. No evidence of acute cholecystitis. 2. Patient unable to ingest Ensure Plus, therefore gallbladder ejection fracti on cannot be evaluated. 3. Normal common bile duct and small bowel activity is visualized.
[2021-04-30] MEDS: enoxaparin 80 mg/0.8 mL Syringe SUBCUT (08:51)
[2021-04-30] MEDS: FUROsemide 10 mg/mL SDV 4mL 40 MG IVP ×2 (08:51→18:14)
[2021-04-30] MEDS: cefTRIAXone 1,000 MG in sodium chloride 0.9% (plus) 50 ML 100 MG IV (08:51)
[2021-04-30] MEDS: famotidine 20 mg/2 mL INJ IVP (08:51)
--- NOTE | 2021-04-30 13:16 | P.PN_ITS ---
Subjective Subjective: Interval history: No acute events overnight. Patient has remained on nasal cannula. Saturating 92% on 1 L oxygen supplementation. Patient is awake alert but confused. Vitals/I&O/Wt Last Vital Signs Temp 97.7 F 04/30/21 04:00 Pulse 89 04/30/21 08:38 Resp 18 04/30/21 08:38 BP 135/58 04/30/21 04:00 Pulse Ox 93 04/30/21 08:38 04/29/21 04/30/21 04/30/21 22:59 06:59 14:59 Intake Total 100 / 250 100 / 350 150 / 150 Output Total 950 / 1550 200 / 1750 Balance -850 / -1300 -100 / -1400 150 / 150 Weight last 48 hrs Weight 80.768 kg Weight 81.647 kg Physical Exam Narrative: EXAM NARRATIVE: General: No acute distress, awake, confused HEENT: PERRLA, pupils bilaterally equal and reactive, pallors not present Chest: Normal vesicular breath sounds, occasional coarse crackles present all over the lung tenorio, decreased air entry bilaterally in lower and posterior zones CVS: S1-S2 regular, no murmurs, no tachycardia, no gallops, no rubs Abdomen: Soft, nontender, no organomegaly, bowel sounds present Neuro: moving all extremities in bed, does not appear to follow commands Urinary Catheter Management^: Contreras: Cath Placed During This Visit: yes Reason for Continuing Indwelling Catheter: Acute Urinary Retention or Obstruction Urinary Catheter Date of Insertion: 04/28/21 Urinary Catheter Time of Insertion: 18:46 Data : 04/30/21 04:35 04/30/21 04:35 Micro: Microbiology 04/28/21 18:55 Urine Culture - Preliminary Urine,Clean Catch 04/28/21 20:19 Blood Culture - Preliminary Blood NEGATIVE TO DATE 04/28/21 18:55 Blood Culture - Preliminary Blood NEGATIVE TO DATE A&P Assessment and plan (1) Sepsis: Evident from elevated lactate, altered mental status this on admission. Most likely secondary to UTI. Cholecystitis ruled out with HIDA scan. Continue with ceftriaxone and Flagyl for now. Will de-escalate or change antibiotics as per culture results. Status: Acute (2) Hypoxia: Most likely combination of bilateral pleural effusion due to congestive heart failure, pulmonary embolism. COVID-19 PCR negative. Remove isolation precautions. Antibiotics as above for possible pneumonia. Status: Acute (3) Pulmonary embolism: Without right heart strain on CTA. Echocardiogram results appreciated. Patient has been having recurrent [facility] at the [facility]. Discussed the benefit versus risk factors of anticoagulation given new pulmonary embolism and frequent falls. Family verbalized understanding and would not want anticoagulation for now. Status: Acute (4) Pulmonary edema: Continue with IV Lasix 40 mg twice daily. Echocardiogram done shows an EF of 30% to 35% with grade 3 diastolic dysfunction, mild to moderate MR, mild to moderate AI. Strict input output charting. Daily weights. Status: Acute (5) UTI (urinary tract infection): empiric ceftriaxone 1g iv q24h await urine cx Status: Acute (6) Cholecystitis: Monitor LFTs. Management as above. Status: Ruled-out (7) AMS (altered mental status): Resolved. Most likely metabolic encephalopathy worsening patient's baseline dementia. Frequent orientation. Status: Acute (8) Pleural effusion: Treatment as above. We will try to get her off BiPAP and if patient is not saturating well will discuss with pulmonology for thoracentesis. For now we will try to avoid. Less concern for empyema currently. Status: Acute Additional A&P Information CODE STATUS: DNR/DNI per [facility] records DVT ppx: full dose lovenox N.p.o. except meds ice and chips. Famotidine for PUD prophylaxis Goals of care discussion: Discussed with family regarding the prognosis. We discussed that unfortunately patient has severely advanced dementia, severe a ortic stenosis and now severe LV dysfunction on the echocardiogram with multiple valvular abnormalities with bilateral moderate to large pleural effusion. We discussed unfortunately as been discussed with the software packaging engineer before she is not a good candidate for aortic valve surgery TAVR versus open heart and her pleural effusion and heart failure unlikely to improve. Family verbalized understanding and states would want patient to go on hospice. They stated that she was on hospice in November but hospice was discontinued for possible physical therapy at the [facility] but now given the new diagnosis and evaluation they think hospice is appropriate. Case management has been alerted. Attestations Medical Necessity Statement*: Requires further hospitalization for management of hospice care given severe advanced dementia, severe aortic stenosis, congestive heart failure because of severe LV dysfunction while comfortable discharge planning is sought. Time Spent in Patient Care: Greater than 35 minutes (>than 50% of time spent in counselling and/or direct pt care on unit) . Coding Level of Care Code Acute Lock Corner Machine Operator for Chg Fwd Diagnoses Sepsis A41.9 Hypoxia R09.02 Pulmonary embolism I26.99 Pulmonary edema J81.1 UTI (urinary tract infection) N39.0 Cholecystitis K81.9 AMS (altered mental status) R41.82 Pleural effusion J90
[2021-04-30] MEDS: haloperidol inj 5 mg/mL INJ 1 mL IVP (18:13)
[2021-04-30] MEDS: famotidine 20 mg Tablet PO (18:18)
[2021-04-30] MEDS: metroNIDAZOLE 500 MG Tablet PO (20:49)
[2021-04-30] MEDS: acetaminophen 325 mg Tablet 650 MG PO (20:49)
[2021-05-01] VITALS (9 sets, daily range): BP systolic 122–151; BP diastolic 58–69; PULSE 81–93; RESP 14–30; TEMP 36.2–36.9; O2SAT 93–99
--- NOTE | 2021-05-01 00:14 | PC.NURSE ---
@ 1999 patient awake and restless, removed placed back on, patient unable to comprehend need for set at 2lpm via NC, resp shallow,fine crackles to bilat lower lobes, no cough, @ 2230, bipap placed on resident due to continued restlessness and removal of NC, patient been resting quietly since.
[2021-05-01] MEDS: famotidine 20 mg Tablet PO (09:21)
[2021-05-01] MEDS: metroNIDAZOLE 500 MG Tablet PO ×2 (09:21→14:57)
[2021-05-01] MEDS: FUROsemide 10 mg/mL SDV 4mL 40 MG IVP (09:21)
[2021-05-01] MEDS: cefTRIAXone 1,000 MG in sodium chloride 0.9% (plus) 50 ML 100 MG IV (09:21)
--- NOTE | 2021-05-01 11:07 | PM.DCS ---
Discharge Providers Date of Admission: 04/28/21 21:07 Date of Discharge: May 01, 2021 Attending Provider at Admission: Shannon Bob MD Attending Provider at Discharge: Philip Miller MD Primary Care Provider: Francisco Lopez DO Diagnoses at Discharge Discharge Diagnosis (1) Sepsis: Status: Acute (2) Hypoxia: Status: Acute (3) Pulmonary embolism: Status: Acute (4) Pulmonary edema: Status: Acute (5) UTI (urinary tract infection): Status: Acute (6) Cholecystitis: Status: Ruled-out (7) AMS (altered mental status): Status: Acute (8) Pleural effusion: Status: Acute (9) Hospice care: Status: Acute (10) Severe aortic valve stenosis: Status: Acute (11) CHF (congestive heart failure): Status: Acute (12) Moderate mitral regurgitation: Status: Acute Reason for Visit Reason for Visit: AMS Hospital Course Hospital Course Ana Paula Dodge is a 75 year old female, group home resident with past medical history of advanced dementia, severe aortic stenosis not amenable to surgical procedure because of baseline functional and mental capacity, possible congestive heart failure was brought to the ER on April 29 after being noted to be more lethargic than usual and hypoxic. Patient on admission was requiring BiPAP ventilation to maintain his saturations over 92%. She returned to the hospital for further management for hypoxia and altered mental status. CT chest was done which revealed pulmonary embolism and bilateral large pleural effusions. On admission there was a concern for possible UTI and cholecystitis on imaging. Cholecystitis was ruled out with a HIDA scan. Patient was started on full dose anticoagulation and empiric antibiotics for UTI. Patient responded well to the treatment and was at her back to baseline mentation by the next day saturating 92 to 94% on 1 L to 2 L oxygen supplementation. Echocardiogram was done which showed an EF of 35%, mild concentric LVH, grade 3 diastolic dysfunction, mild biatrial enlargement, moderate MR, moderate AI. Multiple goals of care discussion was done with family members including and patient's daughter at bedside. We discussed that unfortunately patient has severely advanced dementia, severe aortic stenosis and now severe LV dysfunction on the echocardiogram with multiple valvular abnormalities with bilateral moderate to large pleural effusion. We discussed unfortunately as been discussed with the bakery and deli sales manager before she is not a good candidate for aortic valve surgery TAVR versus open heart and her pleural effusion and heart failure unlikely to improve. Family verbalized understanding and states would want patient to go on hospice. They stated that she was on hospice in November but hospice was discontinued for possible physical therapy at the group home but now given the new diagnosis and evaluation they think hospice is appropriate. Also discussed given her history of frequent falls patient is not a good candidate for anticoagulation given small PE and her risk of a hemorrhagic stroke or catastrophic hemorrhage from a fall being higher. Family verbalized understanding and wants her to be off anticoagulation. Patient is being discharged in hemodynamically stable condition with hospice back to group home. It is recommended for patient to use CPAP at night as per tolerable. To avoid Ativan. Can use Haldol as advised as Ativan shown to have increased agitation. Physical Exam Narrative: EXAM NARRATIVE: General: No acute distress, awake, confused HEENT: PERRLA, pupils bilaterally equal and reactive, pallors not present Chest: Normal vesicular breath sounds, occasional coarse crackles present all over the lung tenorio, decreased air entry bilaterally in lower and posterior zones CVS: S1-S2 regular, no murmurs, no tachycardia, no gallops, no rubs Abdomen: Soft, nontender, no organomegaly, bowel sounds present Neuro: moving all extremities in bed, does not appear to follow commands Urinary Catheter Management^: Contrersa: Cath Placed During This Visit: yes Reason for Continuing Indwelling Catheter: Acute Urinary Retention or Obstruction Urinary Catheter Date of Insertion: 04/28/21 Urinary Catheter Time of Insertion: 18:46 Discharge Data Data Completed and Pending: Completed Studies During Hospitalization Category Date Time Status CT angio chest w abd pel w con Urge nt Cat Scan 04/28/21 17:[address] head wo con* 7 0450 Urgent Cat Scan 04/28/21 15:50 Completed X[place] 1[place] [id number] Urgent Exams 04/28/21 15:50 Completed NM hepatobiliary w phar* [id number] Rout ine Nuc Med 04/30/21 07:00 [place] [id number] Routin e Ultrasound 04/29/21 05:32 Completed CV. echo complete * [id number] Routine Ultrasound 04/29/21 05:26 Completed [place] abdomen limite d [id number] Stat Ultrasound 04/28/21 20:06 Completed Pending at discharge Category Date Time Status Blood Culture Sta t Lab 04/28/21 20:19 Results Addt'l Data from Hospital Stay: Laboratory Results WBC 13.0 10^3/uL (4.0 -10.0) H 04/30/21 04:35 RBC 4.67 10^6/uL (4.1 -5.3) 04/30/21 04:35 Hgb 12.8 g/dL (11.5-1 5.3) 04/30/21 04:35 Hct 41.8 % (37.0-47.0 ) 04/30/21 04:35 MCV 89.5 fl (81-99) 04/30/21 04:35 MCH 27.4 pg (28.0-34. 0) L 04/30/21 04:35 MCHC 30.6 g/dL (30.0-3 6.0) 04/30/21 04:35 RDW 15.6 % (12.1-15.1 ) H 04/30/21 04:35 Plt Count 361 10^3/cmm (130 -400) 04/30/21 04:35 MPV 10.6 fL (7.4-10.4 ) H 04/30/21 04:35 Neut % (Auto) 76.0 % 04/30/21 04:35 Lymph % (Auto) 11.0 % 04/30/21 04:35 Gregg % (Auto) 12.2 % 04/30/21 04:35 Eos % (Auto) 0.1 % 04/30/21 04:35 Baso % (Auto) 0.3 % 04/30/21 04:35 Neut # (Auto) 9.86 10^3/uL (1.8 -7.7) H 04/30/21 04:35 Lymph # (Auto) 1.4 10^3/uL (0.8- 4.8) 04/30/21 04:35 Gregg # (Auto) 1.6 10^3/uL (0.2- 0.9) H 04/30/21 04:35 Eos # (Auto) 0.0 10^3/uL (0.0- 0.8) 04/30/21 04:35 Baso # (Auto) 0.0 10^3/uL (0.0- 0.1) 04/30/21 04:35 Nucleated RBC % (a uto) 0.2 % 04/30/21 04:35 Nucleated RBCs # 0.0 /100WBC 04/30/21 04:35 Specimen Type Arterial 04/28/21 16:08 Sample Site Radial, left 04/28/21 16:08 ABG pH 7.41 (7.35-7.45) 04/28/21 16:08 ABG pCO2 31.1 mmHg (35-45) L 04/28/21 16:08 ABG pO2 93.5 mmHg (80.0-1 00.0) 04/28/21 16:08 ABG HCO3 19.8 mmol/L (22-2 6) L 04/28/21 16:08 ABG Base Excess -3.8 mmol/L (-2.0 -2.0) L 04/28/21 16:08 Clint Test Pos 04/28/21 16:08 Hematocrit 40.7 % (37-47) 04/28/21 16:08 Hgb O2 Saturation 96.1 % (95-100) 04/28/21 16:08 Carboxyhemoglobin 1.8 %THgb (0.4-20 .1) 04/28/21 16:08 Methemoglobin 0.2 % (0.4-1.5) L 04/28/21 16:08 Total Hemoglobin 13.3 g/dL (12-16) 04/28/21 16:08 O2 Delivery Device Nc 04/28/21 16:08 O2 Liters/Min 2.0 % 04/28/21 16:08 FiO2 28.0 % 04/28/21 16:08 Typesetter Perforator Operator ID Ed 04/28/21 16:08 Sodium 144 mmol/L (136-1 45) 04/30/21 04:35 Potassium 3.8 mmol/L (3.5-5 .1) 04/30/21 04:35 Chloride 107 mmol/L (98-10 7) 04/30/21 04:35 Carbon Dioxide 26 mmol/L (22-29) 04/30/21 04:35 Anion Gap 14.8 (5-19) 04/30/21 04:35 BUN 24 mg/dL (8-23) H 04/30/21 04:35 Creatinine 0.9 mg/dL (0.5-0. 9) 04/30/21 04:35 GFR Calculation Not Reportable 04/30/21 04:35 Glucose 105 mg/dL (65-115 ) 04/30/21 04:35 POC Glucose 150 mg/dL (70-110 ) H 04/28/21 21:00 Calculated Osmolal ity 302 mOsm/kg (285- 295) H 04/30/21 04:35 Lactic Acid 1.7 mmol/L (0.5-2 .2) 04/29/21 14:45 Lactic Acid (Sepsi s) 2.7 mmol/L (0.5-2 .2) H 04/28/21 18:55 Lactate 2.1 mmol/L (0.5-2 .2) 04/28/21 21:00 Calcium 8.5 mg/dL (8.5-10 .5) 04/30/21 04:35 Total Bilirubin 0.8 mg/dL (0.15-1 .2) 04/30/21 04:35 AST 34 U/L (0-32) H 04/30/21 04:35 ALT 68 U/L (0-33) H 04/30/21 04:35 Alkaline Phosphata se 162 IU/L (35-105) H 04/30/21 04:35 Ammonia 14 umol/L (11-51) 04/28/21 18:55 Troponin T Baselin e 32 ng/L (0-10) H 04/28/21 15:16 Troponin T 120 Min [place] 29.84 ng/L (0-10) H 04/28/21 17:00 Delta Troponin T -2.16 ABS# (0-10) L 04/28/21 17:00 Troponin T Hi Sens 6Hr 24.97 ng/L (0-10) H 04/28/21 21:00 Troponin T Hi Sens 6Hr Delta -7.03 ng/L (0-12) L 04/28/21 21:00 C-Reactive Protein 41.9 mg/L (0.0-4. 9) H 04/28/21 15:16 NT-Pro-B Natriuret Pep 64387 pg/mL (0-45 0) H 04/28/21 15:16 Total Protein 5.8 g/dL (6.6-8.7 ) L 04/30/21 04:35 Albumin 2.9 g/dL (3.5-5.2 ) L 04/30/21 04:35 Globulin 2.9 g/dL (1.3-4.6 ) 04/30/21 04:35 Lipase 32 U/L (13-60) 04/28/21 21:00 Procalcitonin 0.09 ng/mL (0-0.5 ) 04/28/21 15:16 Urine Color Yellow (Yellow) 04/28/21 18:55 Urine Appearance Sl cloudy (CLEAR ) A 04/28/21 18:55 Urine pH 5 (5-7) 04/28/21 18:55 Ur Specific Gravit y 1.025 (1.005-1.0 30) 04/28/21 18:55 Urine Protein 3+ (Negative) H 04/28/21 18:55 Urine Glucose (UA) Norm (Normal) 04/28/21 18:55 Urine Ketones Negative (Negati ve) 04/28/21 18:55 Urine Blood 3+ (Negative) H 04/28/21 18:55 Urine Nitrate Negative (Negati ve) 04/28/21 18:55 Urine Bilirubin 1+ (Negative) H 04/28/21 18:55 Urine Urobilinogen 1 mg/dL (Negative ) H 04/28/21 18:55 Ur Leukocyte Ale ase 1+ (Negative) H 04/28/21 18:55 Urine RBC 0-4 /hpf (0-2) H 04/28/21 18:55 Urine WBC 10-15 /hpf (0-5) H 04/28/21 18:55 Ur Squamous Epith Cells 5-10 /hpf (0-5) H 04/28/21 18:55 Amorphous Sediment 2+ /hpf 04/28/21 18:55 Urine Bacteria 2+ /hpf (NONE) H 04/28/21 18:55 Urine Mucus Trace /hpf 04/28/21 18:55 Nasal/Oral COVID-1 9 PCR Not detected 04/28/21 16:11 SARS-CoV-2 Ag (Rap id) Negative (Negati ve) 04/28/21 16:18 Impressions Chest X-Ray 04/28/21 15:50 IMPRESSION: 1. Bibasilar atelectasis versus pneumonia, and moderate sized right pleural effusion. 2. Mild cardiomegaly. Head CT 04/28/21 15:50 IMPRESSION: No acute intracranial abnormality. Radiation Dose CTDIVOL = (mGy): DLP = 3836.04 (mGy-cm) Chest/Abdomen/Pelvis CT 04/28/21 17:56 IMPRESSION: 1. Equivocal findings for acute cholecystitis including cholelithiasis and gallbladder wall thickening. 2. Anasarca. Radiation Dose CTDIVOL = (mGy): DLP = 1591.43~1591.43 (mGy-cm) ADDENDUM: 04/28/211999 THIS REPORT CONTAINS FINDINGS THAT MAY BE CRITICAL TO PATIENT CARE. The findings were verbally communicated via telephone conference with Mp Cosby at 7:58 PM CDT on 04/28/2021. The findings were acknowledged and understood. Radiation Dose CTDIVOL = (mGy): DLP = 1591.43~1591.43 (mGy-cm) Abdomen Ultrasound 04/28/21 20:06 IMPRESSION: Nondistended gallbladder containing stones or sludge and demonstrating a thickened wall. Findings are equivocal for acute cholecystitis. Gallbladder wall edema could be related to the systemic process producing anasarca. Hepatobiliary Scan Nuclear Medicine 04/30/21 07:00 IMPRESSION: 1. No evidence of acute cholecystitis. 2. Patient unable to ingest Ensure Plus, therefore gallbladder ejection fraction cannot be evaluated. 3. Normal common bile duct and small bowel activity is visualized. Microbiology 04/28/21 18:55 Urine,Clean Catch Urine Culture - Final 04/28/21 20:19 Blood Blood Culture - Preliminary NEGATIVE TO DATE 04/28/21 18:55 Blood Blood Culture - Preliminary NEGATIVE TO DATE Echocardiogram: CONCLUSIONS Normal LV size with reduced ejection fraction of 30 to 35%. Mild concentric left ventricular hypertrophy. Diffuse hypokinesia of the left ventricle.Grade III/IV diastolic dysfunction (restrictive filling pattern), severely elevated filling pressures. Mild biatrial enlargementThickened mitral valve. Mild mitral annular calcification. Mild-moderate mitral valve regurgitation. Thickened aortic valve. [id number] aortic valve regurgitation. Structurally normal pulmonic valve without significant stenosis. There is no pulmonic regurgitation. Possible large left-sided pleural effusion Technically somewhat difficult study because of poor ultrasonic window Vitals: Last Vital Signs Temp 98.4 F 05/01/21 07:30 Pulse 83 05/01/21 09:11 Resp 17 05/01/21 09:11 BP 124/69 05/01/21 07:30 Pulse Ox 96 05/01/21 09:11 Discharge Plan Discharge Patient Disposition: Hospice - Medical Facility Condition: Stable Prescriptions: New famotidine 10 mg tablet 10 mg PO BID Qty: 30 RF: 0 Continued Tylenol 325 mg Tablet 650 mg PO Q4H PRN (Reason: Pain) RF: 0 Zyrtec 10 mg Tablet 10 mg PO DAILY PRN (Reason: Allergy Symptoms) RF: 0 potassium chloride 20 mEq tablet,ER particles/crystals 20 meq PO DAILY RF: 0 Milk of Magnesia 400 mg/5 mL Suspension 30 ml PO DAILY PRN (Reason: Constipation) RF: 0 hydrocortisone 1 % Cream See Rx Instructions .ROUTE .COMPLEX RF: 0 bisacodyl 10 mg Suppository 10 mg MS DAILY PRN (Reason: Constipation) RF: 0 Enema Disposable 19-7 gram/118 mL Enema 118 ml MS DAILY PRN (Reason: Constipation) RF: 0 docusate sodium 100 mg Capsule 200 mg PO DAILY RF: 0 Two Pipe (90ml) 1 ea PO TID RF: 0 Changed furosemide 40 mg tablet 40 mg PO BIDWM Qty: 0 RF: 0 Discontinued Ativan 0.5 mg Tablet 0.5 mg PO BEDTIME PRN (Reason: Anxiety) RF: 0 Discharge Orders: Discharge Order (Routine); Ordered 05/01/21 Ordered By: Philip Miller Discharge Diet: Soft Mechanical Discharge Activity: Resume usual activity Patient Instructions: Opioid Safety Activity Restrictions/Additional Instructions: Hospice Discharge Attestations Time Spent in Discharge Care*: greater than 30 min Specific Discharge Activities: educating and/or supporting family/caregiver, discussing with pcp/other providers, discussing with case specialist/social workers/dc planners, documenting/other paperwork and evaluating patient/reviewing data Status at Discharge: Cognitive status at discharge: severely impaired cognition, Behavioral status at discharge: cooperative and can be uncooperative, Functional status at discharge: other assisted ambulation Overall status at discharge: patient is back to baseline Quality Metrics Clinical Quality Measures During this hospital stay, did patient experience: None Coding Level of Care Code Acute g FW DC note Diagnoses Sepsis A41.9 Hypoxia R09.02 Pulmonary embolism I26.99 Pulmonary edema J81.1 UTI (urinary tract infection) N39.0 Cholecystitis K81.9 AMS (altered mental status) R41.82 Pleural effusion J90 Hospice care Z51.5 Severe aortic valve stenosis I35.0 CHF (congestive heart failure) I50.9 Moderate mitral regurgitation I34.0
--- NOTE | 2021-05-01 11:23 | PC.SOCIAL ---
Pg 2 IMM. Explained to pt's family Pg 2 IMM. No questions voiced. Provided pt/family a copy. Initialed, dated, & timed a copy & placed in chart.
--- NOTE | 2021-05-01 13:43 | PC.NURSE ---
Called report to MAXIM Camejo at [facility] [place] for discharge report.
--- NOTE | 2021-05-06 10:18 | PC.SOCIAL ---
discharge follow up call made, spoke with Lex, patients nurse at [facility] [place]. He reports pt continues to try to take O2 off, she is currently on 2L of O2. patient is being seen by [facility]. All of patients medications are available at the facility but at times patient refuses to take meds.
== END 2021-05-01 15:57 | disposition hospice, inpatient (51) | DRG 871 ==
LOC: ER 17:35 → ICU 22:03 → MEDSURG 04-29 02:05
PROVIDERS: Admitting Provider Student in an Organized Health Care Education/Training Program; Emergency Provider Emergency Medicine; PCP Internal Medicine; Visit Provider Student in an Organized Health Care Education/Training Program
DX: A41.9 Sepsis, unspecified organism (principal); I26.99 Other pulmonary embolism without acute cor pulmonale; J96.91 Respiratory failure, unspecified with hypoxia; G93.41 Metabolic encephalopathy; N39.0 Urinary tract infection, site not specified; J81.1 Chronic pulmonary edema; G30.9 Alzheimer's disease, unspecified; F02.80 Dementia in other diseases classified elsewhere, unspecified severity, without behavioral disturbance, psychotic disturbance, mood disturbance, and anxiety; I35.0 Nonrheumatic aortic (valve) stenosis; I50.9 Heart failure, unspecified; Z66 Do not resuscitate; Z20.822 Contact with and (suspected) exposure to COVID-19; Z88.0 Allergy status to penicillin
CPT/HCPCS: 36415; 36416; 36600; 51702; 70450; 71045; 71275; 74177; 76705; 78227; 80053; 81001; 82140; 82805; 82962; 83605; 83690; 83880; 84145; 84484; 85025; 86140; 87040; 87086; 87426; 87635; 93005; 93306; 93970; 94640; 94660; 96365; 96372; 96375; 99285; A9537; J0696; J1630; J1650; J1940; J1956; J2270; J2405; J3490; J7040; Q9967; S0030